=== PATIENT | male | born 1960 | race Caucasian/White ===

== ENCOUNTER 2018-07-12 09:49 | Emergency (ER) | payer OTHER ==
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
[2018-07-12] MEDS ORDERED: SITA1TAB17 PO (10:12)
[2018-07-12] MEDS ORDERED: GABA-549 PO (10:12)
[2018-07-12] MEDS ORDERED: ATOR40TA24 PO (10:12)
[2018-07-12] MEDS ORDERED: METO25TA23 PO (10:12)
[2018-07-12] MEDS ORDERED: CLOP75TA PO (10:12)
[2018-07-12] MEDS ORDERED: ASPI81TA86 PO (10:12)
[2018-07-12] MEDS ORDERED: LISI20TA29 PO (10:12)
[2018-07-12] MEDS ORDERED: VENL150T10 PO (10:12)
[2018-07-12] MEDS ORDERED: AMLO-113 PO (10:12)
[2018-07-12 10:24] LABS: PLATELET COUNT, AUTOMATED 303 K/uL (150-450)
[2018-07-12] MEDS ORDERED: IOPAMIDOL 76% 75 ML INFUS BTL 75 ML ONE (10:25)
[2018-07-12] MEDS ORDERED: KETOROLAC 30 MG/ML VIAL IVP ONE (11:45)
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
[2018-07-12 13:00] VITALS: BP 154/64
== END 2018-07-12 13:11 | disposition home or self-care (01) ==
LOC: ER 09:53
DX: S16.1XXA Strain of muscle, fascia and tendon at neck level, initial encounter (principal); R91.8 Other nonspecific abnormal finding of lung field; V69.40XA Driver of heavy transport vehicle injured in collision with unspecified motor vehicles in traffic accident, initial encounter
CPT/HCPCS: 70450; 71260; 72125; 74177; 81001; 85025; 96374; 99284; J1885; Q9967; 82040; 82247; 82310; 82374; 82435; 82565; 82947; 84075; 84132; 84155; 84295; 84450; 84460; 84520

== ENCOUNTER → 2018-07-12 | Outpatient (CLI) | payer OTHER ==
[~2018-07-12] MED LIST: AMLO-113 PO; ASPI81TA86 PO; ATOR40TA24 PO; CLOP75TA PO; GABA-549 PO; LISI20TA29 PO; METO25TA23 PO; SITA1TAB17 PO; VENL150T10 PO
== END ==
LOC: AMB 08:29
PROVIDERS: ATTEND Nurse Practitioner
DX: M54.5 Low back pain (principal); S30.811A Abrasion of abdominal wall, initial encounter; V63.5XXA Driver of heavy transport vehicle injured in collision with car, pick-up truck or van in traffic accident, initial encounter
CPT/HCPCS: A0425; A0427